=== PATIENT | female | born 1990 | race Two or more races ===

== ENCOUNTER 2021-01-04 20:26 | Emergency (ER) | payer OTHER ==
[~2021-01-04] VITALS: Ht 162.6 cm; Wt 56.7 kg
[~2021-01-04 20:26] MED LIST: NA
[2021-01-04] MEDS ORDERED: POLY119PG PO (23:54)
[2021-01-04] MEDS ORDERED: PEPCID AC20 MG PO (23:54)
== END 2021-01-05 00:38 | disposition home or self-care (01) ==
LOC: ER 20:26
DX: N20.0 Calculus of kidney (principal); R10.12 Left upper quadrant pain

== ENCOUNTER 2024-04-13 17:57 | Emergency (ER) | payer OTHER ==
[~2024-04-13] VITALS: Ht 177.8 cm; Wt 59.0 kg
[~2024-04-13 17:57] MED LIST changes: +PEPCID AC20 MG PO; +POLY119PG PO
[2024-04-13] MEDS ORDERED: FAMOTIDINE/PF 20 MG/2 ML VIAL IV ONE (19:45)
[2024-04-13 20:25] LABS: HEMATOCRIT 39.1 % (36.0-45.00); HEMOGLOBIN 13.8 g/dL (12.0-15.00); MEAN CELL VOLUME 84.2 fL (80.00-100.00); MEAN CORPUSCULAR HEMOGLOBIN 29.6 pg (27.00-32.0); MEAN CORPUSCULAR HGB CONC 35.2 g/dl (32.0-36.0); PLATELET COUNT 306 K/uL (150-450); RED BLOOD COUNT 4.65 M/uL (4.00-6.00); RED CELL DISTRIBUTION WIDTH 13.1 % (11.5-14.5)
[2024-04-13 20:50] LABS: ALBUMIN 4.2 gm/dL (3.4-5.0); BILIRUBIN TOTAL 0.56 mg/dL (0.3-1.2); CALCIUM 9.1 mg/dL (8.5-10.1); CREATININE SERUM 0.65 mg/dL (0.55-1.02); GFR 103.72; GLOBULINA 3.8 G/DL (2.4-3.5); POTASSIUM 3.62 mEq/L (3.5-5.1)
[2024-04-13 21:05] LABS: URINE APPEARANCE Clear; URINE BILIRRUBIN Negative (NEGATIVE); URINE BLOOD Negative; URINE COLOR Yellow; URINE GLUCOSE Negative (NEGATIVE); URINE KETONE Negative (NEGATIVE); URINE LEUKOCYTE Negative; URINE NITRATE Negative; URINE PROTEIN Negative (NEGATIVE); URINE UROBILINOGEN 0.2 E.U./dl
[2024-04-13 21:08] LABS: URINE BACTERIA 49.1 uL (0.0-1933); URINE EPITHELIAL CELLS 10.6 uL (0.0-38.8); URINE WBC 4.9 uL (0.0-23.2)
[2024-04-13 21:44] LABS: URINE RBC 1.3 uL (0.0-20.8)
[2024-04-13] MEDS ORDERED: PEPCID AC20 MG PO (21:58)
== END 2024-04-13 22:24 | disposition home or self-care (01) ==
LOC: ER 17:59
PROVIDERS: Nurse Practitioner Family
DX: R10.11 Right upper quadrant pain (principal); K29.70 Gastritis, unspecified, without bleeding; N80.8 Other endometriosis